=== PATIENT | female | born 1960 | race Caucasian/White ===

== ENCOUNTER 2020-04-09 18:25 | Inpatient (IN) | payer OTHER, MEDICAID, SELFPAY ==
[~2020-04-09] VITALS: Ht 165.1 cm; Wt 116.3 kg
[2020-04-09 18:30] VITALS: BP_SYST 153
[2020-04-09 19:01] LABS: BASOPHILS # (AUTO) 0.1 K/uL (0.0-0.2); BASOPHILS % (AUTO) 0.5 % (0.0-2.0); EOSINOPHILS # (AUTO) 0.1 K/uL (0.0-0.4); EOSINOPHILS % (AUTO) 0.6 % (0.0-4.0); HEMATOCRIT 41.5 % (36-48); HEMOGLOBIN 13.6 g/dL (12.0-16.0); LYMPHOCYTES # (AUTO) 1.6 K/uL (1.0-5.5); LYMPHOCYTES % (AUTO) 14.4 % (20.5-51.5); MEAN CORPUSCULAR HEMOGLOBIN 28 pg (27-31); MEAN CORPUSCULAR HGB CONC 33 % (32-36); MEAN CORPUSCULAR VOLUME 85 fL (79.0-98.0); MONOCYTES # (AUTO) 0.9 K/uL (0.0-1.0); MONOCYTES % (AUTO) 8.5 % (1.7-9.3); NEUTROPHILS # (AUTO) 8.3 K/uL (1.8-7.7); PLATELET COUNT (AUTO) 186 K/uL (130-430); RED BLOOD CELL COUNT(AUTO) 4.86 MIL/uL (4.2-6.2); RED CELL DISTRIBUTION WIDTH 16.6 % (9.0-15.0); WHITE BLOOD COUNT (AUTO) 10.9 K/uL (4.8-10.8)
[2020-04-09 19:09] LABS: ANION GAP 3 (5-15); CALCIUM 9.8 mg/dL (8.4-11.0); CHLORIDE 99 mmol/L (98-107); GLUCOSE 117 mg/dL (70-99); POTASSIUM 4.2 mmol/L (3.5-5.1); SODIUM SERUM 138 mmol/L (136-145); UREA NITROGEN, BLOOD 17 mg/dL (8-21)
[2020-04-09 19:10] LABS: GFR AFRICAN AMERICAN 94 mL/min (>90)
[2020-04-09 19:16] LABS: BILIRUBIN,URINE NEGATIVE (NEGATIVE); BLOOD, URINE NEGATIVE (NEGATIVE); CLARITY/URINE CLEAR (CLEAR); COLOR,URINE YELLOW (YELLOW); GLUCOSE,URINE NEGATIVE (NEGATIVE); KETONES,URINE NEGATIVE (NEGATIVE); LEUKOCYTE ESTERASE ,URINE NEGATIVE (NEGATIVE); NITRITE, URINE NEGATIVE (NEGATIVE); PH,URINE 7.5 (5.0-8.0); PROTEIN URINE NEGATIVE (NEGATIVE); UROBILINOGEN,URINE 0.2 (0.2-1.0)
[2020-04-09] MEDS ORDERED: LORA-259 PO (19:57)
[2020-04-09] MEDS ORDERED: DOCU-144 PO (19:57)
[2020-04-09] MEDS ORDERED: BISA5TAB10 PO (19:57)
[2020-04-09] MEDS ORDERED: MAGN24003 PO (19:57)
[2020-04-09] MEDS ORDERED: PRED10TA PO (19:57)
[2020-04-09] MEDS ORDERED: VALP250S3 PO (19:57)
[2020-04-09] MEDS ORDERED: CHOL500052 PO (19:57)
[2020-04-09] MEDS ORDERED: RISP1TAB27 PO (19:57)
[2020-04-09] MEDS ORDERED: RIVA20TA PO (19:57)
[2020-04-09] MEDS ORDERED: BENZ0.5T43 PO (19:57)
[2020-04-09] MEDS ORDERED: TRAZ-251 PO (19:57)
[2020-04-09] MEDS ORDERED: LEVO88TA5 PO (19:57)
[2020-04-09] MEDS ORDERED: PRO40 PO (19:57)
[2020-04-09] MEDS ORDERED: FURO20TA4 PO (19:57)
[2020-04-09] MEDS ORDERED: DOXE10CA2 PO (19:57)
[2020-04-09] MEDS ORDERED: ASCO500C18 PO (19:57)
[2020-04-09] MEDS ORDERED: ACET325C5 PO ×2 (19:57)
[2020-04-09] MEDS ORDERED: IPRATROPIUM/ALBUTEROL SULFATE 3 ML AMPUL.NEB (DUONEB) INH ONE (20:00)
[2020-04-09] MEDS ORDERED: predniSONE 20 MG TABLET PO ONE (20:15)
[2020-04-09] MEDS ORDERED: ALBUTEROL SULFATE 0.083% 2.5 MG/3 ML VIAL.NEB INH PRN (22:30)
[2020-04-10 00:33] VITALS: BP_SYST 137
[2020-04-10 04:12] VITALS: BP_SYST 137
[2020-04-10] MEDS: LEVOFLOXACIN 500 MG/D5W 100 ML IV SCH (04:20)
[2020-04-10 06:19] LABS: BASOPHILS % (AUTO) 0.3 % (0.0-2.0); EOSINOPHILS % (AUTO) 0.1 % (0.0-4.0); HEMATOCRIT 41.4 % (36-48); HEMOGLOBIN 13.8 g/dL (12.0-16.0); LYMPHOCYTES % (AUTO) 9.2 % (20.5-51.5); MEAN CORPUSCULAR HEMOGLOBIN 30 pg (27-31); MEAN CORPUSCULAR HGB CONC 33 % (32-36); MEAN CORPUSCULAR VOLUME 91 fL (79.0-98.0); MONOCYTES # (AUTO) 0.2 K/uL (0.0-1.0); MONOCYTES % (AUTO) 1.9 % (1.7-9.3); NEUTROPHILS # (AUTO) 9.5 K/uL (1.8-7.7); NEUTROPHILS % (AUTO) 88.5 % (40.0-70.0); PLATELET COUNT (AUTO) 175 K/uL (130-430); RED BLOOD CELL COUNT(AUTO) 4.55 MIL/uL (4.2-6.2); RED CELL DISTRIBUTION WIDTH 16.5 % (9.0-15.0); WHITE BLOOD COUNT (AUTO) 10.7 K/uL (4.8-10.8)
[2020-04-10 06:29] LABS: CALCIUM 9.6 mg/dL (8.4-11.0); CREATININE 0.67 mg/dL (0.55-1.30); POTASSIUM 4.3 mmol/L (3.5-5.1)
[2020-04-10 06:34] LABS: ALBUMIN 2.7 g/dL (3.4-4.8); TOTAL BILIRUBIN 0.1 mg/dL (0.0-1.0)
[2020-04-10] MEDS ORDERED: NON-FORMULARY MEDICATION (Ascorbic Acid (Vitamin C) 1 CAP) PO SCH (07:00)
[2020-04-10] MEDS ORDERED: LORazepam 1 MG TABLET PO PRN (07:00)
[2020-04-10] MEDS ORDERED: FUROSEMIDE 20 MG TABLET PO SCH (07:00)
[2020-04-10] MEDS ORDERED: NON-FORMULARY MEDICATION (Acetaminophen 2 CAP) PO PRN (07:00)
[2020-04-10] MEDS ORDERED: ACETAMINOPHEN 325 MG TABLET PO PRN (07:00)
[2020-04-10] MEDS ORDERED: MILK OF MAGNESIA 30 ML UDC PO PRN (07:00)
[2020-04-10 08:00] VITALS: BP_SYST 145
[2020-04-10] MEDS ORDERED: LORazepam 2 MG/ML VIAL ONE (08:13)
[2020-04-10] MEDS ORDERED: LORazepam 2 MG/ML VIAL IVP PRN (08:15)
[2020-04-10] MEDS ORDERED: HALOPERIDOL LACTATE 5 MG/ML VIAL IVP ONE ×2 (08:15→08:30)
[2020-04-10] MEDS: VALPROIC ACID ORAL SYRUP 250 MG/5 ML UDC PO SCH ×3 (09:00→20:27)
[2020-04-10] MEDS: PANTOPRAZOLE SODIUM 40 MG TAB PO SCH (09:00)
[2020-04-10] MEDS ORDERED: predniSONE 10 MG TABLET PO SCH (09:00)
[2020-04-10] MEDS ORDERED: risperiDONE 1 MG TABLET (RisperDAL) PO SCH (09:00)
[2020-04-10] MEDS: BENZTROPINE MESYLATE 1 MG TABLET PO SCH ×2 (09:44→20:27)
[2020-04-10] MEDS: BISACODYL 5 MG TABLET.DR (DULCOLAX) PO SCH (09:44)
[2020-04-10] MEDS: DOCUSATE SODIUM 100 MG CAPSULE PO SCH (09:44)
[2020-04-10] MEDS: FUROSEMIDE 20 MG TABLET PO SCH (09:45)
[2020-04-10] MEDS: DOXEPIN HCL (SINEquan) 10 MG CAPSULE PO SCH ×2 (09:46→20:27)
[2020-04-10] MEDS: LEVOTHYROXINE SODIUM 0.088 MG TABLET PO SCH (09:46)
[2020-04-10] MEDS: CHOLECALCIFEROL (VITAMIN D3) 2,000 UNIT TABLET PO SCH (09:46)
[2020-04-10] MEDS: ASCORBIC ACID 500 MG TABLET PO SCH (09:46)
[2020-04-10 12:00] VITALS: BP_SYST 141
[2020-04-10] MEDS: HALOPERIDOL LACTATE 5 MG/ML VIAL IVP PRN (15:34)
[2020-04-10 16:00] VITALS: BP_SYST 134
[2020-04-10] MEDS: RIVAROXABAN 10 MG TABLET PO SCH (18:49)
[2020-04-10] MEDS: LORazepam 2 MG/ML VIAL IVP PRN (19:15)
[2020-04-10] MEDS: BUDESONIDE 0.5 MG/2 ML AMPUL.NEB INH SCH (19:36)
[2020-04-10 20:00] VITALS: BP_SYST 148
[2020-04-10] MEDS: risperiDONE 1 MG TABLET (RisperDAL) PO SCH (20:27)
[2020-04-10] MEDS: traZODone HCL 50 MG TABLET (DESYREL) PO SCH (20:27)
[2020-04-10] MEDS ORDERED: methylPREDNISolone SOD SUCC/PF 62.5 MG/ML VIAL IVP SCH (21:15)
[2020-04-10] MEDS ORDERED: LEVOFLOXACIN 500 MG/D5W 100 ML IV ONE (23:17)
[2020-04-11] MEDS: methylPREDNISolone SOD SUCC/PF 62.5 MG/ML VIAL IVP SCH ×3 (00:35→22:10)
[2020-04-11 04:00] VITALS: BP_SYST 111
[2020-04-11] MEDS: LORazepam 2 MG/ML VIAL IVP PRN ×2 (04:30→07:28)
[2020-04-11] MEDS: IPRATROPIUM/ALBUTEROL SULFATE 3 ML AMPUL.NEB (DUONEB) INH SCH ×5 (07:00→23:20)
[2020-04-11] MEDS ORDERED: ALBUTEROL MDI INHALATION 8 GM INH INH SCH (07:00)
[2020-04-11 08:00] VITALS: BP_SYST 120
[2020-04-11] MEDS: BUDESONIDE 0.5 MG/2 ML AMPUL.NEB INH SCH ×2 (09:00→20:46)
[2020-04-11] MEDS: VALPROIC ACID ORAL SYRUP 250 MG/5 ML UDC PO SCH ×3 (10:07→22:10)
[2020-04-11] MEDS: BISACODYL 5 MG TABLET.DR (DULCOLAX) PO SCH (10:07)
[2020-04-11] MEDS: BENZTROPINE MESYLATE 1 MG TABLET PO SCH ×2 (10:07→22:10)
[2020-04-11] MEDS: DOCUSATE SODIUM 100 MG CAPSULE PO SCH (10:07)
[2020-04-11] MEDS: DOXEPIN HCL (SINEquan) 10 MG CAPSULE PO SCH ×2 (10:09→22:10)
[2020-04-11] MEDS: QUEtiapine FUMARATE 25 MG TABLET PO SCH ×2 (10:09→22:10)
[2020-04-11] MEDS: CHOLECALCIFEROL (VITAMIN D3) 2,000 UNIT TABLET PO SCH (10:09)
[2020-04-11] MEDS: risperiDONE 1 MG TABLET (RisperDAL) PO SCH ×2 (10:09→22:10)
[2020-04-11] MEDS: LEVOTHYROXINE SODIUM 0.088 MG TABLET PO SCH (10:09)
[2020-04-11] MEDS: PANTOPRAZOLE SODIUM 40 MG TAB PO SCH (10:09)
[2020-04-11] MEDS: ASCORBIC ACID 500 MG TABLET PO SCH (10:09)
[2020-04-11] MEDS: FUROSEMIDE 20 MG TABLET PO SCH (10:09)
[2020-04-11] MEDS: ALBUTEROL SULFATE 0.083% 2.5 MG/3 ML VIAL.NEB INH SCH ×4 (11:00→23:00)
[2020-04-11 12:00] VITALS: BP_SYST 114
[2020-04-11 16:00] VITALS: BP_SYST 122
[2020-04-11] MEDS: RIVAROXABAN 10 MG TABLET PO SCH (18:41)
[2020-04-11 20:00] VITALS: BP_SYST 123
[2020-04-11] MEDS: MUPIROCIN 2% TOPICAL OINTMENT 22 GM NS SCH (22:10)
[2020-04-11] MEDS: traZODone HCL 50 MG TABLET (DESYREL) PO SCH (22:10)
[2020-04-11] MEDS: LEVOFLOXACIN 500 MG/D5W 100 ML IV SCH (22:11)
[2020-04-11] MEDS ORDERED: methylPREDNISolone SOD SUCC/PF 62.5 MG/ML VIAL IVP SCH (23:30)
[2020-04-12 00:30] VITALS: BP_SYST 118
[2020-04-12] MEDS: ALBUTEROL SULFATE 0.083% 2.5 MG/3 ML VIAL.NEB INH SCH ×3 (03:00→11:00)
[2020-04-12] MEDS: LORazepam 2 MG/ML VIAL IVP PRN ×3 (03:16→15:21)
[2020-04-12] MEDS: IPRATROPIUM/ALBUTEROL SULFATE 3 ML AMPUL.NEB (DUONEB) INH SCH ×6 (03:38→23:28)
[2020-04-12 08:00] VITALS: BP_SYST 132
[2020-04-12] MEDS: BUDESONIDE 0.5 MG/2 ML AMPUL.NEB INH SCH ×2 (08:44→20:06)
[2020-04-12] MEDS: DOCUSATE SODIUM 100 MG CAPSULE PO SCH (09:19)
[2020-04-12] MEDS: BENZTROPINE MESYLATE 1 MG TABLET PO SCH ×2 (09:19→22:01)
[2020-04-12] MEDS: BISACODYL 5 MG TABLET.DR (DULCOLAX) PO SCH (09:19)
[2020-04-12] MEDS: MUPIROCIN 2% TOPICAL OINTMENT 22 GM NS SCH ×2 (09:19→22:01)
[2020-04-12] MEDS: FUROSEMIDE 20 MG TABLET PO SCH (09:19)
[2020-04-12] MEDS: methylPREDNISolone SOD SUCC/PF 62.5 MG/ML VIAL IVP SCH ×2 (09:19→22:02)
[2020-04-12] MEDS: VALPROIC ACID ORAL SYRUP 250 MG/5 ML UDC PO SCH ×3 (09:19→22:01)
[2020-04-12] MEDS: ASCORBIC ACID 500 MG TABLET PO SCH (09:20)
[2020-04-12] MEDS: QUEtiapine FUMARATE 25 MG TABLET PO SCH ×2 (09:20→22:01)
[2020-04-12] MEDS: PANTOPRAZOLE SODIUM 40 MG TAB PO SCH (09:20)
[2020-04-12] MEDS: risperiDONE 1 MG TABLET (RisperDAL) PO SCH ×3 (09:20→22:01)
[2020-04-12] MEDS: DOXEPIN HCL (SINEquan) 10 MG CAPSULE PO SCH ×2 (09:20→22:01)
[2020-04-12] MEDS: LEVOTHYROXINE SODIUM 0.088 MG TABLET PO SCH (09:20)
[2020-04-12] MEDS: CHOLECALCIFEROL (VITAMIN D3) 2,000 UNIT TABLET PO SCH (09:20)
[2020-04-12] MEDS: HALOPERIDOL LACTATE 5 MG/ML VIAL IVP PRN (11:30)
[2020-04-12 12:00] VITALS: BP_SYST 111
[2020-04-12 16:00] VITALS: BP_SYST 113
[2020-04-12] MEDS: RIVAROXABAN 10 MG TABLET PO SCH (17:03)
[2020-04-12 20:00] VITALS: BP_SYST 126
[2020-04-12] MEDS: LEVOFLOXACIN 500 MG/D5W 100 ML IV SCH (22:01)
[2020-04-12] MEDS: traZODone HCL 50 MG TABLET (DESYREL) PO SCH (22:01)
[2020-04-13 00:54] VITALS: BP_SYST 118
[2020-04-13] MEDS: IPRATROPIUM/ALBUTEROL SULFATE 3 ML AMPUL.NEB (DUONEB) INH SCH ×6 (03:48→23:55)
[2020-04-13 07:55] VITALS: BP_SYST 126
[2020-04-13 08:00] VITALS: BP_SYST 126
[2020-04-13] MEDS: BUDESONIDE 0.5 MG/2 ML AMPUL.NEB INH SCH ×2 (09:00→23:54)
[2020-04-13] MEDS: FUROSEMIDE 20 MG TABLET PO SCH (10:07)
[2020-04-13] MEDS: MUPIROCIN 2% TOPICAL OINTMENT 22 GM NS SCH ×2 (10:07→21:25)
[2020-04-13] MEDS: DOCUSATE SODIUM 100 MG CAPSULE PO SCH (10:07)
[2020-04-13] MEDS: BISACODYL 5 MG TABLET.DR (DULCOLAX) PO SCH (10:07)
[2020-04-13] MEDS: BENZTROPINE MESYLATE 1 MG TABLET PO SCH ×2 (10:07→21:24)
[2020-04-13] MEDS: VALPROIC ACID ORAL SYRUP 250 MG/5 ML UDC PO SCH ×3 (10:07→21:23)
[2020-04-13] MEDS: methylPREDNISolone SOD SUCC/PF 62.5 MG/ML VIAL IVP SCH ×2 (10:07→21:26)
[2020-04-13] MEDS: LEVOTHYROXINE SODIUM 0.088 MG TABLET PO SCH (10:08)
[2020-04-13] MEDS: ASCORBIC ACID 500 MG TABLET PO SCH (10:08)
[2020-04-13] MEDS: PANTOPRAZOLE SODIUM 40 MG TAB PO SCH (10:08)
[2020-04-13] MEDS: risperiDONE 1 MG TABLET (RisperDAL) PO SCH ×3 (10:08→21:24)
[2020-04-13] MEDS: QUEtiapine FUMARATE 25 MG TABLET PO SCH ×2 (10:08→21:24)
[2020-04-13] MEDS: DOXEPIN HCL (SINEquan) 10 MG CAPSULE PO SCH ×2 (10:08→21:24)
[2020-04-13] MEDS: CHOLECALCIFEROL (VITAMIN D3) 2,000 UNIT TABLET PO SCH (10:08)
[2020-04-13] MEDS: HALOPERIDOL LACTATE 5 MG/ML VIAL IVP PRN (10:30)
[2020-04-13 11:21] LABS: HEMATOCRIT 42.9 % (36-48); HEMOGLOBIN 14.1 g/dL (12.0-16.0); MEAN CORPUSCULAR HEMOGLOBIN 29 pg (27-31); MEAN CORPUSCULAR HGB CONC 33 % (32-36); MEAN CORPUSCULAR VOLUME 88 fL (79.0-98.0); RED BLOOD CELL COUNT(AUTO) 4.88 MIL/uL (4.2-6.2); RED CELL DISTRIBUTION WIDTH 16.8 % (9.0-15.0); WHITE BLOOD COUNT (AUTO) 15.5 K/uL (4.8-10.8)
[2020-04-13 11:43] LABS: PLATELET COUNT (AUTO) 141 K/uL (130-430)
[2020-04-13 11:59] LABS: BAND % (MANUAL) 3 % (0-6); BASOPHILS % (MANUAL) 0 % (0-2); EOSINOPHILS % (MANUAL) 0 % (0-7); LYMPHOCYTES % (MANUAL) 14 % (20-46); MONOCYTES % (MANUAL) 6 % (0-11)
[2020-04-13 12:00] VITALS: BP_SYST 126
[2020-04-13] MEDS: LORazepam 2 MG/ML VIAL IVP PRN (15:06)
[2020-04-13 17:02] VITALS: BP_SYST 125
[2020-04-13] MEDS: RIVAROXABAN 10 MG TABLET PO SCH (17:15)
[2020-04-13 20:00] VITALS: BP_SYST 138
[2020-04-13] MEDS: traZODone HCL 50 MG TABLET (DESYREL) PO SCH (21:24)
[2020-04-13] MEDS: LEVOFLOXACIN 500 MG/D5W 100 ML IV SCH (21:25)
[2020-04-14] VITALS: BP_SYST 121
[2020-04-14] MEDS: LORazepam 2 MG/ML VIAL IVP PRN ×2 (00:54→17:56)
[2020-04-14] MEDS: IPRATROPIUM/ALBUTEROL SULFATE 3 ML AMPUL.NEB (DUONEB) INH SCH ×6 (03:00→23:20)
[2020-04-14] MEDS: HALOPERIDOL LACTATE 5 MG/ML VIAL IVP PRN (05:09)
[2020-04-14 05:59] LABS: EOSINOPHILS # (AUTO) 0.2 K/uL (0.0-0.4); LYMPHOCYTES % (AUTO) 9.1 % (20.5-51.5); RED BLOOD CELL COUNT(AUTO) 4.45 MIL/uL (4.2-6.2)
[2020-04-14 06:17] LABS: ALBUMIN 2.4 g/dL (3.4-4.8); CALCIUM 9.4 mg/dL (8.4-11.0); CREATININE 0.84 mg/dL (0.55-1.30); POTASSIUM 4.2 mmol/L (3.5-5.1); TOTAL BILIRUBIN 0.2 mg/dL (0.0-1.0)
[2020-04-14 07:15] LABS: BASOPHILS # (AUTO) 0.1 K/uL (0.0-0.2); BASOPHILS % (AUTO) 0.5 % (0.0-2.0); EOSINOPHILS % (AUTO) 1.2 % (0.0-4.0); HEMATOCRIT 39.2 % (36-48); HEMOGLOBIN 12.9 g/dL (12.0-16.0); LYMPHOCYTES # (AUTO) 1.7 K/uL (1.0-5.5); MEAN CORPUSCULAR HEMOGLOBIN 29 pg (27-31); MEAN CORPUSCULAR HGB CONC 33 % (32-36); MEAN CORPUSCULAR VOLUME 88 fL (79.0-98.0); MONOCYTES # (AUTO) 0.9 K/uL (0.0-1.0); MONOCYTES % (AUTO) 4.8 % (1.7-9.3); NEUTROPHILS # (AUTO) 15.9 K/uL (1.8-7.7); NEUTROPHILS % (AUTO) 84.4 % (40.0-70.0); PLATELET COUNT (AUTO) 239 K/uL (130-430); RED CELL DISTRIBUTION WIDTH 16.6 % (9.0-15.0); WHITE BLOOD COUNT (AUTO) 18.9 K/uL (4.8-10.8)
[2020-04-14 07:45] VITALS: BP_SYST 129
[2020-04-14] MEDS ORDERED: DIPHENHYDRAMINE HCL 50 MG CAPSULE PO ONE (09:00)
[2020-04-14] MEDS: BUDESONIDE 0.5 MG/2 ML AMPUL.NEB INH SCH ×2 (09:46→20:20)
[2020-04-14] MEDS: DOCUSATE SODIUM 100 MG CAPSULE PO SCH (10:00)
[2020-04-14] MEDS: ASCORBIC ACID 500 MG TABLET PO SCH (10:00)
[2020-04-14] MEDS: risperiDONE 1 MG TABLET (RisperDAL) PO SCH ×4 (10:00→21:19)
[2020-04-14] MEDS: FUROSEMIDE 20 MG TABLET PO SCH (10:01)
[2020-04-14] MEDS: PANTOPRAZOLE SODIUM 40 MG TAB PO SCH (10:01)
[2020-04-14] MEDS: BISACODYL 5 MG TABLET.DR (DULCOLAX) PO SCH (10:01)
[2020-04-14] MEDS: VALPROIC ACID ORAL SYRUP 250 MG/5 ML UDC PO SCH ×4 (10:02→21:17)
[2020-04-14] MEDS: methylPREDNISolone SOD SUCC/PF 62.5 MG/ML VIAL IVP SCH (10:02)
[2020-04-14] MEDS: CHOLECALCIFEROL (VITAMIN D3) 2,000 UNIT TABLET PO SCH (10:03)
[2020-04-14] MEDS: THORAZINE (chlorproMAZINE) 25 MG TAB PO SCH ×3 (10:05→21:19)
[2020-04-14] MEDS: LEVOTHYROXINE SODIUM 0.088 MG TABLET PO SCH (10:08)
[2020-04-14] MEDS: MUPIROCIN 2% TOPICAL OINTMENT 22 GM NS SCH ×2 (10:23→22:36)
[2020-04-14 12:00] VITALS: BP_SYST 167
[2020-04-14] MEDS ORDERED: FLUCONAZOLE 100 mg/ NS 50 ML IV SCH (12:00)
[2020-04-14] MEDS: ALBUTEROL SULFATE 0.083% 2.5 MG/3 ML VIAL.NEB INH SCH ×3 (15:00→23:00)
[2020-04-14] MEDS: DIPHENHYDRAMINE HCL 50 MG CAPSULE PO SCH ×3 (15:00→21:19)
[2020-04-14 16:10] VITALS: BP_SYST 142
[2020-04-14] MEDS: RIVAROXABAN 10 MG TABLET PO SCH (18:26)
[2020-04-14] MEDS: chlorproMAZINE HCL 50 MG/ 2 ML AMP IM PRN (18:38)
[2020-04-14] MEDS: methylPREDNISolone SOD SUCC 40 MG/ML VIAL IVP SCH (21:17)
[2020-04-14] MEDS: metroNIDAZOLE 500 mg/NS 100 ML IV SCH (21:18)
[2020-04-14] MEDS: LEVOFLOXACIN 500 MG/D5W 100 ML IV SCH (22:35)
[2020-04-15 00:31] VITALS: BP_SYST 117
[2020-04-15] MEDS: IPRATROPIUM/ALBUTEROL SULFATE 3 ML AMPUL.NEB (DUONEB) INH SCH ×6 (03:00→23:35)
[2020-04-15] MEDS: ALBUTEROL SULFATE 0.083% 2.5 MG/3 ML VIAL.NEB INH SCH ×3 (03:00→23:00)
[2020-04-15 08:30] VITALS: BP_SYST 135
[2020-04-15 08:31] LABS: CALCIUM 8.8 mg/dL (8.4-11.0); CREATININE 0.76 mg/dL (0.55-1.30); POTASSIUM 4.4 mmol/L (3.5-5.1)
[2020-04-15] MEDS: BUDESONIDE 0.5 MG/2 ML AMPUL.NEB INH SCH ×2 (08:45→20:12)
[2020-04-15] MEDS: metroNIDAZOLE 500 mg/NS 100 ML IV SCH ×2 (09:15→20:35)
[2020-04-15] MEDS: MUPIROCIN 2% TOPICAL OINTMENT 22 GM NS SCH ×2 (09:15→20:36)
[2020-04-15] MEDS: VALPROIC ACID ORAL SYRUP 250 MG/5 ML UDC PO SCH ×3 (09:16→20:45)
[2020-04-15] MEDS: DOCUSATE SODIUM 100 MG CAPSULE PO SCH (09:17)
[2020-04-15] MEDS: PANTOPRAZOLE SODIUM 40 MG TAB PO SCH (09:17)
[2020-04-15] MEDS: methylPREDNISolone SOD SUCC 40 MG/ML VIAL IVP SCH ×2 (09:17→20:35)
[2020-04-15] MEDS: THORAZINE (chlorproMAZINE) 25 MG TAB PO SCH ×3 (09:17→20:36)
[2020-04-15] MEDS: ASCORBIC ACID 500 MG TABLET PO SCH (09:17)
[2020-04-15] MEDS: risperiDONE 1 MG TABLET (RisperDAL) PO SCH ×3 (09:17→20:36)
[2020-04-15] MEDS: DIPHENHYDRAMINE HCL 50 MG CAPSULE PO SCH ×3 (09:18→20:35)
[2020-04-15] MEDS: FUROSEMIDE 20 MG TABLET PO SCH (09:18)
[2020-04-15] MEDS: CHOLECALCIFEROL (VITAMIN D3) 2,000 UNIT TABLET PO SCH (09:18)
[2020-04-15] MEDS: LEVOTHYROXINE SODIUM 0.088 MG TABLET PO SCH (09:18)
[2020-04-15] MEDS: BISACODYL 5 MG TABLET.DR (DULCOLAX) PO SCH (09:18)
[2020-04-15 11:14] LABS: BASOPHILS % (AUTO) 0.3 % (0.0-2.0); HEMATOCRIT 40.9 % (36-48); HEMOGLOBIN 13.6 g/dL (12.0-16.0); LYMPHOCYTES # (AUTO) 1.6 K/uL (1.0-5.5); LYMPHOCYTES % (AUTO) 11.7 % (20.5-51.5); MEAN CORPUSCULAR HEMOGLOBIN 30 pg (27-31); MEAN CORPUSCULAR HGB CONC 33 % (32-36); MEAN CORPUSCULAR VOLUME 89 fL (79.0-98.0); MONOCYTES # (AUTO) 0.7 K/uL (0.0-1.0); MONOCYTES % (AUTO) 4.9 % (1.7-9.3); NEUTROPHILS # (AUTO) 11.3 K/uL (1.8-7.7); NEUTROPHILS % (AUTO) 83.1 % (40.0-70.0); PLATELET COUNT (AUTO) 180 K/uL (130-430); RED BLOOD CELL COUNT(AUTO) 4.58 MIL/uL (4.2-6.2); RED CELL DISTRIBUTION WIDTH 16.5 % (9.0-15.0); WHITE BLOOD COUNT (AUTO) 13.6 K/uL (4.8-10.8)
[2020-04-15 12:00] VITALS: BP_SYST 132
[2020-04-15 16:00] VITALS: BP_SYST 128
[2020-04-15] MEDS: RIVAROXABAN 10 MG TABLET PO SCH (17:19)
[2020-04-15 20:00] VITALS: BP_SYST 128
[2020-04-15] MEDS: LEVOFLOXACIN 500 MG/D5W 100 ML IV SCH (21:42)
[2020-04-16 00:26] VITALS: BP_SYST 123
[2020-04-16] MEDS: IPRATROPIUM/ALBUTEROL SULFATE 3 ML AMPUL.NEB (DUONEB) INH SCH ×6 (03:00→23:00)
[2020-04-16] MEDS: ALBUTEROL SULFATE 0.083% 2.5 MG/3 ML VIAL.NEB INH SCH ×6 (03:00→23:00)
[2020-04-16 08:00] VITALS: BP_SYST 133
[2020-04-16] MEDS: metroNIDAZOLE 500 mg/NS 100 ML IV SCH ×2 (08:52→20:29)
[2020-04-16] MEDS: THORAZINE (chlorproMAZINE) 25 MG TAB PO SCH ×3 (08:52→20:27)
[2020-04-16] MEDS: FUROSEMIDE 20 MG TABLET PO SCH (08:53)
[2020-04-16] MEDS: ASCORBIC ACID 500 MG TABLET PO SCH (08:53)
[2020-04-16] MEDS: methylPREDNISolone SOD SUCC 40 MG/ML VIAL IVP SCH ×2 (08:53→20:26)
[2020-04-16] MEDS: PANTOPRAZOLE SODIUM 40 MG TAB PO SCH (08:53)
[2020-04-16] MEDS: risperiDONE 1 MG TABLET (RisperDAL) PO SCH ×3 (08:53→20:26)
[2020-04-16] MEDS: VALPROIC ACID ORAL SYRUP 250 MG/5 ML UDC PO SCH ×3 (08:53→20:27)
[2020-04-16] MEDS: DOCUSATE SODIUM 100 MG CAPSULE PO SCH (08:54)
[2020-04-16] MEDS: BISACODYL 5 MG TABLET.DR (DULCOLAX) PO SCH (08:54)
[2020-04-16] MEDS: LEVOTHYROXINE SODIUM 0.088 MG TABLET PO SCH (08:54)
[2020-04-16] MEDS: DIPHENHYDRAMINE HCL 50 MG CAPSULE PO SCH ×3 (08:54→20:26)
[2020-04-16] MEDS: MUPIROCIN 2% TOPICAL OINTMENT 22 GM NS SCH (08:54)
[2020-04-16] MEDS: CHOLECALCIFEROL (VITAMIN D3) 2,000 UNIT TABLET PO SCH (08:54)
[2020-04-16] MEDS: BUDESONIDE 0.5 MG/2 ML AMPUL.NEB INH SCH ×2 (09:00→21:00)
[2020-04-16 12:00] VITALS: BP_SYST 125
[2020-04-16 16:58] VITALS: BP_SYST 128
[2020-04-16] MEDS: RIVAROXABAN 10 MG TABLET PO SCH (17:07)
[2020-04-16 20:00] VITALS: BP_SYST 143
[2020-04-16] MEDS: LEVOFLOXACIN 500 MG/D5W 100 ML IV SCH (21:47)
[2020-04-17 00:30] VITALS: BP_SYST 142
[2020-04-17] MEDS: IPRATROPIUM/ALBUTEROL SULFATE 3 ML AMPUL.NEB (DUONEB) INH SCH ×6 (03:31→23:13)
[2020-04-17 06:40] LABS: HEMATOCRIT 40.1 % (36-48); HEMOGLOBIN 13.3 g/dL (12.0-16.0); LYMPHOCYTES # (AUTO) 1.8 K/uL (1.0-5.5); LYMPHOCYTES % (AUTO) 13.6 % (20.5-51.5); MEAN CORPUSCULAR HEMOGLOBIN 29 pg (27-31); MEAN CORPUSCULAR HGB CONC 33 % (32-36); MEAN CORPUSCULAR VOLUME 88 fL (79.0-98.0); MONOCYTES # (AUTO) 1.1 K/uL (0.0-1.0); MONOCYTES % (AUTO) 8.7 % (1.7-9.3); NEUTROPHILS # (AUTO) 10.1 K/uL (1.8-7.7); NEUTROPHILS % (AUTO) 77.7 % (40.0-70.0); PLATELET COUNT (AUTO) 178 K/uL (130-430); RED BLOOD CELL COUNT(AUTO) 4.55 MIL/uL (4.2-6.2); RED CELL DISTRIBUTION WIDTH 16.5 % (9.0-15.0)
[2020-04-17 06:42] LABS: CALCIUM 9.1 mg/dL (8.4-11.0); CHLORIDE 96 mmol/L (98-107); GLUCOSE 123 mg/dL (70-99); POTASSIUM 4.3 mmol/L (3.5-5.1); SODIUM SERUM 135 mmol/L (136-145); UREA NITROGEN, BLOOD 17 mg/dL (8-21)
[2020-04-17] MEDS: ALBUTEROL SULFATE 0.083% 2.5 MG/3 ML VIAL.NEB INH SCH ×5 (07:00→23:00)
[2020-04-17 07:13] LABS: ANION GAP < 3 (5-15); GFR AFRICAN AMERICAN 109 mL/min (>90)
[2020-04-17 08:00] VITALS: BP_SYST 118
[2020-04-17] MEDS: metroNIDAZOLE 500 mg/NS 100 ML IV SCH ×2 (08:19→21:41)
[2020-04-17] MEDS: ASCORBIC ACID 500 MG TABLET PO SCH (08:20)
[2020-04-17] MEDS: VALPROIC ACID ORAL SYRUP 250 MG/5 ML UDC PO SCH ×3 (08:20→21:26)
[2020-04-17] MEDS: risperiDONE 1 MG TABLET (RisperDAL) PO SCH ×3 (08:20→21:24)
[2020-04-17] MEDS: methylPREDNISolone SOD SUCC 40 MG/ML VIAL IVP SCH ×2 (08:20→21:26)
[2020-04-17] MEDS: LEVOTHYROXINE SODIUM 0.088 MG TABLET PO SCH (08:20)
[2020-04-17] MEDS: PANTOPRAZOLE SODIUM 40 MG TAB PO SCH (08:20)
[2020-04-17] MEDS: DIPHENHYDRAMINE HCL 50 MG CAPSULE PO SCH ×3 (08:21→21:25)
[2020-04-17] MEDS: FUROSEMIDE 20 MG TABLET PO SCH (08:21)
[2020-04-17] MEDS: CHOLECALCIFEROL (VITAMIN D3) 2,000 UNIT TABLET PO SCH (08:21)
[2020-04-17] MEDS: BISACODYL 5 MG TABLET.DR (DULCOLAX) PO SCH (08:21)
[2020-04-17] MEDS: DOCUSATE SODIUM 100 MG CAPSULE PO SCH (08:21)
[2020-04-17] MEDS: chlorproMAZINE HCL 50 MG/ 2 ML AMP IM PRN ×2 (08:35→15:04)
[2020-04-17] MEDS: THORAZINE (chlorproMAZINE) 25 MG TAB PO SCH ×3 (09:00→21:25)
[2020-04-17 09:24] VITALS: BP_SYST 118
[2020-04-17] MEDS: BUDESONIDE 0.5 MG/2 ML AMPUL.NEB INH SCH ×2 (09:48→19:36)
[2020-04-17 12:20] VITALS: BP_SYST 133
[2020-04-17 15:41] VITALS: BP_SYST 120
[2020-04-17] MEDS: RIVAROXABAN 10 MG TABLET PO SCH (17:55)
[2020-04-17 21:00] VITALS: BP_SYST 128
[2020-04-18 01:37] VITALS: BP_SYST 116
[2020-04-18] MEDS: IPRATROPIUM/ALBUTEROL SULFATE 3 ML AMPUL.NEB (DUONEB) INH SCH ×6 (03:47→23:09)
[2020-04-18] MEDS: LORazepam 2 MG/ML VIAL IVP PRN ×2 (07:37→20:50)
[2020-04-18 08:00] VITALS: BP_SYST 143
[2020-04-18 08:21] LABS: BASOPHILS # (AUTO) 0.1 K/uL (0.0-0.2); BASOPHILS % (AUTO) 0.6 % (0.0-2.0); EOSINOPHILS % (AUTO) 0.2 % (0.0-4.0); HEMATOCRIT 41.6 % (36-48); HEMOGLOBIN 13.5 g/dL (12.0-16.0); LYMPHOCYTES # (AUTO) 1.9 K/uL (1.0-5.5); LYMPHOCYTES % (AUTO) 14.6 % (20.5-51.5); MEAN CORPUSCULAR HEMOGLOBIN 29 pg (27-31); MEAN CORPUSCULAR HGB CONC 33 % (32-36); MEAN CORPUSCULAR VOLUME 88 fL (79.0-98.0); MONOCYTES # (AUTO) 0.9 K/uL (0.0-1.0); NEUTROPHILS # (AUTO) 10.2 K/uL (1.8-7.7); NEUTROPHILS % (AUTO) 77.6 % (40.0-70.0); PLATELET COUNT (AUTO) 156 K/uL (130-430); RED BLOOD CELL COUNT(AUTO) 4.73 MIL/uL (4.2-6.2); RED CELL DISTRIBUTION WIDTH 16.8 % (9.0-15.0); WHITE BLOOD COUNT (AUTO) 13.1 K/uL (4.8-10.8)
[2020-04-18] MEDS: risperiDONE 1 MG TABLET (RisperDAL) PO SCH ×3 (08:45→21:55)
[2020-04-18] MEDS: CHOLECALCIFEROL (VITAMIN D3) 2,000 UNIT TABLET PO SCH (08:45)
[2020-04-18] MEDS: VALPROIC ACID ORAL SYRUP 250 MG/5 ML UDC PO SCH ×3 (08:45→21:52)
[2020-04-18] MEDS: THORAZINE (chlorproMAZINE) 25 MG TAB PO SCH ×3 (08:45→21:55)
[2020-04-18] MEDS: BISACODYL 5 MG TABLET.DR (DULCOLAX) PO SCH (08:46)
[2020-04-18] MEDS: PANTOPRAZOLE SODIUM 40 MG TAB PO SCH (08:46)
[2020-04-18] MEDS: FUROSEMIDE 20 MG TABLET PO SCH (08:46)
[2020-04-18] MEDS: DIPHENHYDRAMINE HCL 50 MG CAPSULE PO SCH ×3 (08:46→21:55)
[2020-04-18] MEDS: methylPREDNISolone SOD SUCC 40 MG/ML VIAL IVP SCH ×2 (08:46→21:53)
[2020-04-18] MEDS: DOCUSATE SODIUM 100 MG CAPSULE PO SCH (08:46)
[2020-04-18] MEDS: LEVOTHYROXINE SODIUM 0.088 MG TABLET PO SCH (08:46)
[2020-04-18] MEDS: ASCORBIC ACID 500 MG TABLET PO SCH (08:47)
[2020-04-18] MEDS: metroNIDAZOLE 500 mg/NS 100 ML IV SCH ×2 (08:47→21:55)
[2020-04-18] MEDS: MUPIROCIN 2% TOPICAL OINTMENT 22 GM TP SCH ×2 (08:47→21:54)
[2020-04-18] MEDS: BUDESONIDE 0.5 MG/2 ML AMPUL.NEB INH SCH ×2 (09:00→20:05)
[2020-04-18 11:34] VITALS: BP_SYST 133
[2020-04-18 15:21] VITALS: BP_SYST 140
[2020-04-18] MEDS: RIVAROXABAN 10 MG TABLET PO SCH (17:54)
[2020-04-18] MEDS: ALBUTEROL SULFATE 0.083% 2.5 MG/3 ML VIAL.NEB INH SCH ×2 (19:00→23:00)
[2020-04-18 20:00] VITALS: BP_SYST 136
[2020-04-19] MEDS: LORazepam 2 MG/ML VIAL IVP PRN ×2 (02:10→11:25)
[2020-04-19 02:34] VITALS: BP_SYST 124
[2020-04-19] MEDS: IPRATROPIUM/ALBUTEROL SULFATE 3 ML AMPUL.NEB (DUONEB) INH SCH ×5 (03:00→20:01)
[2020-04-19] MEDS: ALBUTEROL SULFATE 0.083% 2.5 MG/3 ML VIAL.NEB INH SCH ×5 (03:00→19:00)
[2020-04-19 07:46] VITALS: BP_SYST 150
[2020-04-19] MEDS: LEVOTHYROXINE SODIUM 0.088 MG TABLET PO SCH (08:30)
[2020-04-19] MEDS: risperiDONE 1 MG TABLET (RisperDAL) PO SCH ×3 (08:31→21:00)
[2020-04-19] MEDS: CHOLECALCIFEROL (VITAMIN D3) 2,000 UNIT TABLET PO SCH (08:31)
[2020-04-19] MEDS: VALPROIC ACID ORAL SYRUP 250 MG/5 ML UDC PO SCH ×3 (08:31→21:00)
[2020-04-19] MEDS: BISACODYL 5 MG TABLET.DR (DULCOLAX) PO SCH (08:31)
[2020-04-19] MEDS: DIPHENHYDRAMINE HCL 50 MG CAPSULE PO SCH ×3 (08:32→21:00)
[2020-04-19] MEDS: DOCUSATE SODIUM 100 MG CAPSULE PO SCH (08:32)
[2020-04-19] MEDS: PANTOPRAZOLE SODIUM 40 MG TAB PO SCH (08:32)
[2020-04-19] MEDS: ASCORBIC ACID 500 MG TABLET PO SCH (08:32)
[2020-04-19] MEDS: FUROSEMIDE 20 MG TABLET PO SCH (08:33)
[2020-04-19] MEDS: methylPREDNISolone SOD SUCC 40 MG/ML VIAL IVP SCH (08:33)
[2020-04-19] MEDS: THORAZINE (chlorproMAZINE) 25 MG TAB PO SCH ×3 (08:33→21:00)
[2020-04-19] MEDS: metroNIDAZOLE 500 MG TABLET PO SCH ×2 (08:46→21:00)
[2020-04-19] MEDS: MUPIROCIN 2% TOPICAL OINTMENT 22 GM TP SCH ×2 (09:00→21:00)
[2020-04-19] MEDS: BUDESONIDE 0.5 MG/2 ML AMPUL.NEB INH SCH ×2 (10:10→20:01)
[2020-04-19 13:48] VITALS: BP_SYST 132
[2020-04-19] MEDS: chlorproMAZINE HCL 50 MG/ 2 ML AMP IM PRN ×2 (15:45→17:51)
[2020-04-19 16:00] VITALS: BP_SYST 126
[2020-04-19] MEDS: RIVAROXABAN 10 MG TABLET PO SCH (17:49)
[2020-04-20] MEDS: ALBUTEROL SULFATE 0.083% 2.5 MG/3 ML VIAL.NEB INH SCH ×5 (07:00→15:00)
[2020-04-20] MEDS: IPRATROPIUM/ALBUTEROL SULFATE 3 ML AMPUL.NEB (DUONEB) INH SCH ×5 (07:00→23:00)
[2020-04-20] MEDS: DOCUSATE SODIUM 100 MG CAPSULE PO SCH (09:00)
[2020-04-20] MEDS: BUDESONIDE 0.5 MG/2 ML AMPUL.NEB INH SCH ×2 (09:00→21:00)
[2020-04-20] MEDS: DIPHENHYDRAMINE HCL 50 MG CAPSULE PO SCH ×3 (09:13→22:19)
[2020-04-20] MEDS: THORAZINE (chlorproMAZINE) 25 MG TAB PO SCH ×3 (09:14→22:19)
[2020-04-20] MEDS: PANTOPRAZOLE SODIUM 40 MG TAB PO SCH (09:14)
[2020-04-20] MEDS: BISACODYL 5 MG TABLET.DR (DULCOLAX) PO SCH (09:14)
[2020-04-20] MEDS: LEVOTHYROXINE SODIUM 0.088 MG TABLET PO SCH (09:14)
[2020-04-20] MEDS: ASCORBIC ACID 500 MG TABLET PO SCH (09:14)
[2020-04-20] MEDS: CHOLECALCIFEROL (VITAMIN D3) 2,000 UNIT TABLET PO SCH (09:14)
[2020-04-20] MEDS: metroNIDAZOLE 500 MG TABLET PO SCH ×2 (09:14→22:19)
[2020-04-20] MEDS: predniSONE 20 MG TABLET PO SCH (09:14)
[2020-04-20] MEDS: FUROSEMIDE 20 MG TABLET PO SCH (09:15)
[2020-04-20] MEDS: VALPROIC ACID ORAL SYRUP 250 MG/5 ML UDC PO SCH ×3 (09:15→22:27)
[2020-04-20] MEDS: risperiDONE 1 MG TABLET (RisperDAL) PO SCH ×3 (09:15→22:19)
[2020-04-20] MEDS: MUPIROCIN 2% TOPICAL OINTMENT 22 GM TP SCH ×2 (09:16→22:21)
[2020-04-20 12:43] VITALS: BP_SYST 123
[2020-04-20 17:15] VITALS: BP_SYST 128
[2020-04-20] MEDS: RIVAROXABAN 10 MG TABLET PO SCH (17:31)
[2020-04-20 20:00] VITALS: BP_SYST 131
[2020-04-21] VITALS: BP_SYST 147
[2020-04-21] MEDS: ALBUTEROL SULFATE 0.083% 2.5 MG/3 ML VIAL.NEB INH SCH ×6 (03:00→23:00)
[2020-04-21] MEDS: IPRATROPIUM/ALBUTEROL SULFATE 3 ML AMPUL.NEB (DUONEB) INH SCH ×6 (03:00→23:00)
[2020-04-21] MEDS: BUDESONIDE 0.5 MG/2 ML AMPUL.NEB INH SCH ×2 (09:00→21:00)
[2020-04-21] MEDS: BISACODYL 5 MG TABLET.DR (DULCOLAX) PO SCH (09:42)
[2020-04-21] MEDS: metroNIDAZOLE 500 MG TABLET PO SCH ×2 (09:42→23:47)
[2020-04-21] MEDS: DOCUSATE SODIUM 100 MG CAPSULE PO SCH (09:42)
[2020-04-21] MEDS: FUROSEMIDE 20 MG TABLET PO SCH (09:44)
[2020-04-21] MEDS: ASCORBIC ACID 500 MG TABLET PO SCH (09:45)
[2020-04-21] MEDS: CHOLECALCIFEROL (VITAMIN D3) 2,000 UNIT TABLET PO SCH (09:45)
[2020-04-21] MEDS: risperiDONE 1 MG TABLET (RisperDAL) PO SCH ×3 (09:46→23:48)
[2020-04-21] MEDS: predniSONE 20 MG TABLET PO SCH (09:46)
[2020-04-21] MEDS: PANTOPRAZOLE SODIUM 40 MG TAB PO SCH (09:47)
[2020-04-21] MEDS: DIPHENHYDRAMINE HCL 50 MG CAPSULE PO SCH ×3 (09:47→23:47)
[2020-04-21] MEDS: THORAZINE (chlorproMAZINE) 25 MG TAB PO SCH ×3 (09:47→23:47)
[2020-04-21] MEDS: LEVOTHYROXINE SODIUM 0.088 MG TABLET PO SCH (10:28)
[2020-04-21] MEDS: VALPROIC ACID ORAL SYRUP 250 MG/5 ML UDC PO SCH ×3 (10:28→23:53)
[2020-04-21 12:00] VITALS: BP_SYST 129
[2020-04-21 16:00] VITALS: BP_SYST 144
[2020-04-21] MEDS: RIVAROXABAN 10 MG TABLET PO SCH (19:15)
[2020-04-21 20:15] VITALS: BP_SYST 127
[2020-04-22] MEDS: IPRATROPIUM/ALBUTEROL SULFATE 3 ML AMPUL.NEB (DUONEB) INH SCH ×6 (03:00→23:00)
[2020-04-22] MEDS: ALBUTEROL SULFATE 0.083% 2.5 MG/3 ML VIAL.NEB INH SCH ×3 (03:00→23:00)
[2020-04-22] MEDS ORDERED: predniSONE 20 MG TABLET PO SCH (08:00)
[2020-04-22] MEDS: BUDESONIDE 0.5 MG/2 ML AMPUL.NEB INH SCH ×2 (09:07→20:32)
[2020-04-22] MEDS: risperiDONE 1 MG TABLET (RisperDAL) PO SCH ×3 (09:16→22:17)
[2020-04-22] MEDS: MUPIROCIN 2% TOPICAL OINTMENT 22 GM TP SCH ×2 (09:16→22:19)
[2020-04-22] MEDS: CHOLECALCIFEROL (VITAMIN D3) 2,000 UNIT TABLET PO SCH (09:16)
[2020-04-22] MEDS: FUROSEMIDE 20 MG TABLET PO SCH (09:18)
[2020-04-22] MEDS: LEVOTHYROXINE SODIUM 0.088 MG TABLET PO SCH (09:19)
[2020-04-22] MEDS: metroNIDAZOLE 500 MG TABLET PO SCH ×2 (09:19→22:17)
[2020-04-22] MEDS: ASCORBIC ACID 500 MG TABLET PO SCH (09:19)
[2020-04-22] MEDS: THORAZINE (chlorproMAZINE) 25 MG TAB PO SCH ×3 (09:19→22:17)
[2020-04-22] MEDS: PANTOPRAZOLE SODIUM 40 MG TAB PO SCH (09:19)
[2020-04-22] MEDS: BISACODYL 5 MG TABLET.DR (DULCOLAX) PO SCH (09:19)
[2020-04-22] MEDS: DOCUSATE SODIUM 100 MG CAPSULE PO SCH (09:19)
[2020-04-22] MEDS: DIPHENHYDRAMINE HCL 50 MG CAPSULE PO SCH ×3 (09:19→22:17)
[2020-04-22] MEDS: VALPROIC ACID ORAL SYRUP 250 MG/5 ML UDC PO SCH ×3 (09:20→22:18)
[2020-04-22 11:31] VITALS: BP_SYST 91
[2020-04-22] MEDS ORDERED: ALBUTEROL SULFATE 0.083% 2.5 MG/3 ML VIAL.NEB INH ONE (14:37)
[2020-04-22 15:43] VITALS: BP_SYST 110
[2020-04-22] MEDS: RIVAROXABAN 10 MG TABLET PO SCH (18:13)
[2020-04-22 20:00] VITALS: BP_SYST 99
[2020-04-23 00:37] VITALS: BP_SYST 142
[2020-04-23] MEDS: ALBUTEROL SULFATE 0.083% 2.5 MG/3 ML VIAL.NEB INH SCH ×3 (03:00→23:00)
[2020-04-23] MEDS: IPRATROPIUM/ALBUTEROL SULFATE 3 ML AMPUL.NEB (DUONEB) INH SCH ×6 (03:00→23:00)
[2020-04-23 08:00] VITALS: BP_SYST 117
[2020-04-23] MEDS: BUDESONIDE 0.5 MG/2 ML AMPUL.NEB INH SCH ×2 (08:23→20:35)
[2020-04-23] MEDS: PANTOPRAZOLE SODIUM 40 MG TAB PO SCH (11:25)
[2020-04-23] MEDS: CHOLECALCIFEROL (VITAMIN D3) 2,000 UNIT TABLET PO SCH (11:26)
[2020-04-23] MEDS: metroNIDAZOLE 500 MG TABLET PO SCH ×2 (11:26→21:34)
[2020-04-23] MEDS: ASCORBIC ACID 500 MG TABLET PO SCH (11:27)
[2020-04-23] MEDS: THORAZINE (chlorproMAZINE) 25 MG TAB PO SCH ×3 (11:27→21:36)
[2020-04-23] MEDS: risperiDONE 1 MG TABLET (RisperDAL) PO SCH ×3 (11:27→21:34)
[2020-04-23] MEDS: DIPHENHYDRAMINE HCL 50 MG CAPSULE PO SCH ×3 (11:27→21:35)
[2020-04-23] MEDS: BISACODYL 5 MG TABLET.DR (DULCOLAX) PO SCH (11:28)
[2020-04-23] MEDS: VALPROIC ACID ORAL SYRUP 250 MG/5 ML UDC PO SCH ×3 (11:28→21:34)
[2020-04-23] MEDS: DOCUSATE SODIUM 100 MG CAPSULE PO SCH (11:28)
[2020-04-23] MEDS: LEVOTHYROXINE SODIUM 0.088 MG TABLET PO SCH (11:29)
[2020-04-23 12:00] VITALS: BP_SYST 130
[2020-04-23] MEDS: FUROSEMIDE 20 MG TABLET PO SCH (16:50)
[2020-04-23 17:40] VITALS: BP_SYST 127
[2020-04-23] MEDS: chlorproMAZINE HCL 50 MG/ 2 ML AMP IM PRN (18:36)
[2020-04-23 20:00] VITALS: BP_SYST 108
[2020-04-23] MEDS: RIVAROXABAN 10 MG TABLET PO SCH (21:37)
[2020-04-24] MEDS: ALBUTEROL SULFATE 0.083% 2.5 MG/3 ML VIAL.NEB INH SCH ×6 (03:00→23:00)
[2020-04-24] MEDS: IPRATROPIUM/ALBUTEROL SULFATE 3 ML AMPUL.NEB (DUONEB) INH SCH ×6 (03:46→23:00)
[2020-04-24] MEDS: chlorproMAZINE HCL 50 MG/ 2 ML AMP IM PRN (04:35)
[2020-04-24 08:00] VITALS: BP_SYST 110
[2020-04-24] MEDS: CHOLECALCIFEROL (VITAMIN D3) 2,000 UNIT TABLET PO SCH ×2 (09:00→09:49)
[2020-04-24] MEDS: BUDESONIDE 0.5 MG/2 ML AMPUL.NEB INH SCH ×2 (09:00→21:00)
[2020-04-24] MEDS: DOCUSATE SODIUM 100 MG CAPSULE PO SCH ×2 (09:00→09:47)
[2020-04-24] MEDS: DIPHENHYDRAMINE HCL 50 MG CAPSULE PO SCH ×3 (09:47→21:17)
[2020-04-24] MEDS: BISACODYL 5 MG TABLET.DR (DULCOLAX) PO SCH (09:48)
[2020-04-24] MEDS: risperiDONE 1 MG TABLET (RisperDAL) PO SCH ×3 (09:48→21:18)
[2020-04-24] MEDS: PANTOPRAZOLE SODIUM 40 MG TAB PO SCH (09:48)
[2020-04-24] MEDS: LEVOTHYROXINE SODIUM 0.088 MG TABLET PO SCH (09:49)
[2020-04-24] MEDS: ASCORBIC ACID 500 MG TABLET PO SCH (09:49)
[2020-04-24] MEDS: THORAZINE (chlorproMAZINE) 25 MG TAB PO SCH ×3 (09:49→21:18)
[2020-04-24] MEDS: VALPROIC ACID ORAL SYRUP 250 MG/5 ML UDC PO SCH ×3 (09:55→21:18)
[2020-04-24] MEDS: FUROSEMIDE 20 MG TABLET PO SCH (10:02)
[2020-04-24 12:22] VITALS: BP_SYST 132
[2020-04-24 16:00] VITALS: BP_SYST 118
[2020-04-24] MEDS: RIVAROXABAN 10 MG TABLET PO SCH (18:07)
[2020-04-25] MEDS: ALBUTEROL SULFATE 0.083% 2.5 MG/3 ML VIAL.NEB INH SCH ×3 (03:00→23:00)
[2020-04-25] MEDS: IPRATROPIUM/ALBUTEROL SULFATE 3 ML AMPUL.NEB (DUONEB) INH SCH ×6 (03:00→23:00)
[2020-04-25 08:00] VITALS: BP_SYST 128
[2020-04-25] MEDS: BUDESONIDE 0.5 MG/2 ML AMPUL.NEB INH SCH ×2 (09:00→20:31)
[2020-04-25] MEDS: LEVOTHYROXINE SODIUM 0.088 MG TABLET PO SCH (09:00)
[2020-04-25] MEDS: VALPROIC ACID ORAL SYRUP 250 MG/5 ML UDC PO SCH ×3 (09:35→20:37)
[2020-04-25] MEDS: PANTOPRAZOLE SODIUM 40 MG TAB PO SCH (09:35)
[2020-04-25] MEDS: risperiDONE 1 MG TABLET (RisperDAL) PO SCH ×3 (09:36→20:36)
[2020-04-25] MEDS: DOCUSATE SODIUM 100 MG CAPSULE PO SCH (09:36)
[2020-04-25] MEDS: ASCORBIC ACID 500 MG TABLET PO SCH (09:36)
[2020-04-25] MEDS: BISACODYL 5 MG TABLET.DR (DULCOLAX) PO SCH (09:36)
[2020-04-25] MEDS: DIPHENHYDRAMINE HCL 50 MG CAPSULE PO SCH ×3 (09:37→20:36)
[2020-04-25] MEDS: THORAZINE (chlorproMAZINE) 25 MG TAB PO SCH ×3 (09:40→20:36)
[2020-04-25] MEDS: CHOLECALCIFEROL (VITAMIN D3) 2,000 UNIT TABLET PO SCH (09:41)
[2020-04-25] MEDS: FUROSEMIDE 20 MG TABLET PO SCH (09:50)
[2020-04-25 12:37] VITALS: BP_SYST 144
[2020-04-25 16:44] VITALS: BP_SYST 106
[2020-04-25] MEDS ORDERED: LORazepam 2 MG/ML VIAL IM PRN (17:30)
[2020-04-25] MEDS: RIVAROXABAN 10 MG TABLET PO SCH (17:46)
[2020-04-26 00:49] VITALS: BP_SYST 128
[2020-04-26] MEDS: IPRATROPIUM/ALBUTEROL SULFATE 3 ML AMPUL.NEB (DUONEB) INH SCH ×6 (03:00→23:00)
[2020-04-26] MEDS: ALBUTEROL SULFATE 0.083% 2.5 MG/3 ML VIAL.NEB INH SCH (03:00)
[2020-04-26 08:00] VITALS: BP_SYST 131
[2020-04-26] MEDS: DOCUSATE SODIUM 100 MG CAPSULE PO SCH (08:53)
[2020-04-26] MEDS: VALPROIC ACID ORAL SYRUP 250 MG/5 ML UDC PO SCH ×3 (08:53→20:25)
[2020-04-26] MEDS: DIPHENHYDRAMINE HCL 50 MG CAPSULE PO SCH ×3 (08:53→20:25)
[2020-04-26] MEDS: risperiDONE 1 MG TABLET (RisperDAL) PO SCH ×3 (08:54→20:25)
[2020-04-26] MEDS: FUROSEMIDE 20 MG TABLET PO SCH (08:54)
[2020-04-26] MEDS: ASCORBIC ACID 500 MG TABLET PO SCH (08:54)
[2020-04-26] MEDS: THORAZINE (chlorproMAZINE) 25 MG TAB PO SCH ×3 (08:55→20:25)
[2020-04-26] MEDS: PANTOPRAZOLE SODIUM 40 MG TAB PO SCH (08:55)
[2020-04-26] MEDS: BISACODYL 5 MG TABLET.DR (DULCOLAX) PO SCH (08:55)
[2020-04-26] MEDS: CHOLECALCIFEROL (VITAMIN D3) 2,000 UNIT TABLET PO SCH (08:56)
[2020-04-26] MEDS: LEVOTHYROXINE SODIUM 0.088 MG TABLET PO SCH (08:56)
[2020-04-26] MEDS: BUDESONIDE 0.5 MG/2 ML AMPUL.NEB INH SCH ×2 (09:00→20:06)
[2020-04-26 12:53] VITALS: BP_SYST 127
[2020-04-26 14:47] VITALS: BP_SYST 127
[2020-04-26 16:53] VITALS: BP_SYST 121
[2020-04-26] MEDS: RIVAROXABAN 10 MG TABLET PO SCH (18:23)
[2020-04-26 20:00] VITALS: BP_SYST 114
[2020-04-27] MEDS: IPRATROPIUM/ALBUTEROL SULFATE 3 ML AMPUL.NEB (DUONEB) INH SCH ×3 (03:00→12:04)
[2020-04-27] MEDS: ALBUTEROL SULFATE 0.083% 2.5 MG/3 ML VIAL.NEB INH SCH ×2 (07:00→11:00)
[2020-04-27 08:00] VITALS: BP_SYST 119
[2020-04-27] MEDS: BUDESONIDE 0.5 MG/2 ML AMPUL.NEB INH SCH (09:00)
[2020-04-27] MEDS: ASCORBIC ACID 500 MG TABLET PO SCH (09:07)
[2020-04-27] MEDS: LEVOTHYROXINE SODIUM 0.088 MG TABLET PO SCH (09:07)
[2020-04-27] MEDS: BISACODYL 5 MG TABLET.DR (DULCOLAX) PO SCH (09:07)
[2020-04-27] MEDS: DIPHENHYDRAMINE HCL 50 MG CAPSULE PO SCH (09:07)
[2020-04-27] MEDS: PANTOPRAZOLE SODIUM 40 MG TAB PO SCH (09:08)
[2020-04-27] MEDS: CHOLECALCIFEROL (VITAMIN D3) 2,000 UNIT TABLET PO SCH (09:08)
[2020-04-27] MEDS: risperiDONE 1 MG TABLET (RisperDAL) PO SCH (09:08)
[2020-04-27] MEDS: DOCUSATE SODIUM 100 MG CAPSULE PO SCH (09:08)
[2020-04-27] MEDS: VALPROIC ACID ORAL SYRUP 250 MG/5 ML UDC PO SCH (09:08)
[2020-04-27] MEDS: FUROSEMIDE 20 MG TABLET PO SCH (09:22)
[2020-04-27] MEDS: THORAZINE (chlorproMAZINE) 25 MG TAB PO SCH (09:25)
[2020-04-27 12:00] VITALS: BP_SYST 129
[2020-04-27 12:22] VITALS: BP_SYST 122
[2020-04-27] MEDS: chlorproMAZINE HCL 50 MG/ 2 ML AMP IM PRN (12:31)
== END 2020-04-27 13:00 | DRG 177 ==
LOC: SED 18:25 → STU 22:25 → SMU 04-19 08:47
PROVIDERS: ADMIT Family Medicine; ATTEND Family Medicine
DX: J69.0 Pneumonitis due to inhalation of food and vomit (principal); J96.21 Acute and chronic respiratory failure with hypoxia; J44.1 Chronic obstructive pulmonary disease with (acute) exacerbation; Z68.41 Body mass index [BMI] 40.0-44.9, adult; I42.9 Cardiomyopathy, unspecified; E87.1 Hypo-osmolality and hyponatremia; J44.0 Chronic obstructive pulmonary disease with (acute) lower respiratory infection; I11.0 Hypertensive heart disease with heart failure; E03.9 Hypothyroidism, unspecified; F41.9 Anxiety disorder, unspecified; D69.6 Thrombocytopenia, unspecified; F29 Unspecified psychosis not due to a substance or known physiological condition; Z20.828 Contact with and (suspected) exposure to other viral communicable diseases; F32.9 Major depressive disorder, single episode, unspecified; E66.01 Morbid (severe) obesity due to excess calories; F03.90 Unspecified dementia, unspecified severity, without behavioral disturbance, psychotic disturbance, mood disturbance, and anxiety; F79 Unspecified intellectual disabilities; T38.0X5A Adverse effect of glucocorticoids and synthetic analogues, initial encounter; Z79.1 Long term (current) use of non-steroidal anti-inflammatories (NSAID); Z79.899 Other long term (current) drug therapy; Z79.890 Hormone replacement therapy; Z88.0 Allergy status to penicillin; Z88.8 Allergy status to other drugs, medicaments and biological substances; Z78.1 Physical restraint status; Z78.9 Other specified health status; Z86.718 Personal history of other venous thrombosis and embolism; Z87.891 Personal history of nicotine dependence; Z95.0 Presence of cardiac pacemaker; Y92.89 Other specified places as the place of occurrence of the external cause
CPT/HCPCS: 36415; 71045; 80048; 80053; 81003; 83605; 83880; 84443-TC; 84484; 85007; 85025; 85027; 85379; 87081; 93005; 93306; 94640; 94760; 99285; G0378; J1030; J1450; J1630; J1956; J2060; J2930; J3230; J3490; J7050; J7512; J7613; J7626; Q0161; Q0163; U0003-CS

== ENCOUNTER 2020-10-13 15:26 | Emergency (ER) | payer OTHER, MEDICAID, SELFPAY ==
[~2020-10-13] VITALS: Ht 165.1 cm; Wt 90.7 kg
[2020-10-13 15:26] VITALS: BP_SYST 157
[~2020-10-13 15:26] MED LIST: ACET325C5 PO; ASCO500C18 PO; BENZ0.5T43 PO; BISA5TAB10 PO; CHOL500052 PO; DOCU-144 PO; DOXE10CA2 PO; FURO20TA4 PO; LEVO88TA5 PO; LORA-259 PO; MAGN24003 PO; PRO40 PO; RISP1TAB27 PO; RIVA20TA PO; TRAZ-251 PO; VALP250S3 PO
[2020-10-13] MEDS ORDERED: HALOPERIDOL LACTATE 5 MG/ML VIAL IM ONE (15:45)
[2020-10-13] MEDS ORDERED: LORazepam 2 MG/ML VIAL IM ONE (15:45)
[2020-10-13] MEDS ORDERED: DIPHENHYDRAMINE INJ 50 MG/ML VIAL IM ONE (15:45)
[2020-10-13] MEDS ORDERED: LORazepam 2 MG/ML VIAL ONE (15:50)
[2020-10-13] MEDS ORDERED: DIPHENHYDRAMINE INJ 50 MG/ML VIAL ONE (15:51)
[2020-10-13] MEDS ORDERED: HALOPERIDOL LACTATE 5 MG/ML VIAL ONE (15:51)
[2020-10-13 16:39] LABS: BILIRUBIN,URINE NEGATIVE (NEGATIVE); BLOOD, URINE NEGATIVE (NEGATIVE); COLOR,URINE YELLOW (YELLOW); GLUCOSE,URINE NEGATIVE (NEGATIVE); KETONES,URINE TRACE (NEGATIVE); LEUKOCYTE ESTERASE ,URINE NEGATIVE (NEGATIVE); NITRITE, URINE POSITIVE (NEGATIVE); PH,URINE 6.5 (5.0-8.0); PROTEIN URINE NEGATIVE (NEGATIVE); UROBILINOGEN,URINE 0.2 (0.2-1.0)
[2020-10-13 16:45] LABS: CLARITY/URINE HAZY (CLEAR)
[2020-10-13 16:52] LABS: BARBITURATE, URINE NEGATIVE (NEG <=200); BENZODIAZEPINE, URINE POSITIVE (NEG <=150); CANNABINOID, URINE NEGATIVE (NEG <=50); COCAINE, URINE NEGATIVE (NEG <=150); METHAMPHETAMINES SCREEN,URINE NEGATIVE (NEG <=500); OPIATE, URINE NEGATIVE (NEG <=100); PHENCYCLIDINE SCREEN,URINE NEGATIVE (NEG <=25); URINE AMPHETAMINE NEGATIVE (NEG <=500); URINE METHADONE NEGATIVE (NEG <=200); URINE OXYCODONE SCREEN NEGATIVE (NEG <=100); URINE PROPOXYPHENE SCREEN NEGATIVE (NEG <=300)
[2020-10-13 16:53] LABS: UR TRICYCLIC ANTIDEPRESSANTS NEGATIVE (NEG <=300)
[2020-10-13 16:55] LABS: BACTERIA,URINE MANY /HPF (None Seen); RBC,URINE 0-3 /HPF (0-3)
[2020-10-13 16:56] LABS: COARSE GRANULAR CASTS,URINE 0-10 /LPF (None Seen); MUCUS,URINE 3+ /LPF (None Seen)
[2020-10-13 16:59] LABS: BASOPHILS # (AUTO) 0.1 K/uL (0.0-0.2); BASOPHILS % (AUTO) 0.5 % (0.0-2.0); EOSINOPHILS # (AUTO) 0.2 K/uL (0.0-0.4); EOSINOPHILS % (AUTO) 1.2 % (0.0-4.0); HEMATOCRIT 42.5 % (36-48); HEMOGLOBIN 13.8 g/dL (12.0-16.0); LYMPHOCYTES # (AUTO) 1.9 K/uL (1.0-5.5); LYMPHOCYTES % (AUTO) 14.4 % (20.5-51.5); MEAN CORPUSCULAR HEMOGLOBIN 28 pg (27-31); MEAN CORPUSCULAR HGB CONC 33 % (32-36); MEAN CORPUSCULAR VOLUME 86 fL (79.0-98.0); MONOCYTES # (AUTO) 1.1 K/uL (0.0-1.0); MONOCYTES % (AUTO) 8.4 % (1.7-9.3); NEUTROPHILS % (AUTO) 75.5 % (40.0-70.0); PLATELET COUNT (AUTO) 320 K/uL (130-430); RED BLOOD CELL COUNT(AUTO) 4.97 MIL/uL (4.2-6.2); RED CELL DISTRIBUTION WIDTH 18.3 % (9.0-15.0); WHITE BLOOD COUNT (AUTO) 13.3 K/uL (4.8-10.8)
[2020-10-13 17:12] LABS: ANION GAP 11 (5-15); CALCIUM 9.8 mg/dL (8.4-11.0); CHLORIDE 99 mmol/L (98-107); CREATININE 0.87 mg/dL (0.55-1.30); GLUCOSE 110 mg/dL (70-99); POTASSIUM 3.6 mmol/L (3.5-5.1); SODIUM SERUM 140 mmol/L (136-145); UREA NITROGEN, BLOOD 8 mg/dL (8-21)
[2020-10-13 17:16] LABS: GFR AFRICAN AMERICAN 85 mL/min (>90)
[2020-10-13 17:18] LABS: ALANINE AMINOTRANSFERASE 23 U/L (12-78); ALBUMIN 3.1 g/dL (3.4-4.8); ASPARTATE AMINOTRANSFERASE 24 U/L (10-37); TOTAL BILIRUBIN 0.5 mg/dL (0.0-1.0)
[2020-10-13 17:19] LABS: HDL CHOLESTEROL 58 mg/dL (>55); LDL CHOLESTEROL 203 mg/dL (<100); TRIGLYCERIDES 74 mg/dL (30-150)
[2020-10-13 17:20] LABS: ACETAMINOPHEN < 1 ug/mL (1-30); ALCOHOL, BLOOD < 3 mg/dL (<10)
[2020-10-13] MEDS ORDERED: cefTRIAXone 1 GM VIAL IM ONE (17:30)
[2020-10-13] MEDS ORDERED: CIPR-211 PO (17:34)
[2020-10-13] MEDS ORDERED: LIDOCAINE 1%, 20 ML MDV 20 ML ONE (17:38)
[2020-10-13 17:39] LABS: CHOLESTEROL 281 mg/dL (<200)
[2020-10-13 20:02] VITALS: BP_SYST 134
== END 2020-10-13 20:00 | disposition home or self-care (01) ==
LOC: SED 15:26
DX: R45.6 Violent behavior (principal); N39.0 Urinary tract infection, site not specified; J44.9 Chronic obstructive pulmonary disease, unspecified; Z79.899 Other long term (current) drug therapy; Z88.8 Allergy status to other drugs, medicaments and biological substances; Z20.822 Contact with and (suspected) exposure to COVID-19
CPT/HCPCS: 36415; 80053; 80061; 80307; 81000; 83036; 85025; 87081; 87086; 87426; 96372; 99284; G0480; G0481; G0482; J0696; J1200; J1630; J2001; J2060

== ENCOUNTER 2020-10-21 13:09 | Inpatient (IN) | payer OTHER, MEDICAID, SELFPAY ==
[~2020-10-21] VITALS: Ht 165.1 cm; Wt 86.2 kg
[~2020-10-21 13:09] MED LIST changes: +CIPR500T5 PO; -RISP1TAB27 PO; +RISP1TAB44 PO
[2020-10-21 13:16] VITALS: BP_SYST 114
[2020-10-21] MEDS ORDERED: DIPHENHYDRAMINE INJ 50 MG/ML VIAL IM ONE (13:45)
[2020-10-21] MEDS ORDERED: HALOPERIDOL LACTATE 5 MG/ML VIAL IM ONE ×2 (13:45→18:45)
[2020-10-21] MEDS ORDERED: LORazepam 2 MG/ML VIAL IM ONE (13:45)
[2020-10-21 15:54] LABS: BASOPHILS # (AUTO) 0.2 K/uL (0.0-0.2); BASOPHILS % (AUTO) 2.5 % (0.0-2.0); EOSINOPHILS # (AUTO) 0.3 K/uL (0.0-0.4); EOSINOPHILS % (AUTO) 3.1 % (0.0-4.0); HEMATOCRIT 39.7 % (36-48); HEMOGLOBIN 13.2 g/dL (12.0-16.0); LYMPHOCYTES # (AUTO) 1.7 K/uL (1.0-5.5); LYMPHOCYTES % (AUTO) 20.3 % (20.5-51.5); MEAN CORPUSCULAR HEMOGLOBIN 28 pg (27-31); MEAN CORPUSCULAR HGB CONC 33 % (32-36); MEAN CORPUSCULAR VOLUME 86 fL (79.0-98.0); MONOCYTES # (AUTO) 0.9 K/uL (0.0-1.0); MONOCYTES % (AUTO) 10.3 % (1.7-9.3); NEUTROPHILS # (AUTO) 5.3 K/uL (1.8-7.7); NEUTROPHILS % (AUTO) 63.8 % (40.0-70.0); PLATELET COUNT (AUTO) 234 K/uL (130-430); RED BLOOD CELL COUNT(AUTO) 4.64 MIL/uL (4.2-6.2); RED CELL DISTRIBUTION WIDTH 17.6 % (9.0-15.0); WHITE BLOOD COUNT (AUTO) 8.3 K/uL (4.8-10.8)
[2020-10-21 16:18] LABS: ALANINE AMINOTRANSFERASE 21 U/L (12-78); ALBUMIN 2.7 g/dL (3.4-4.8); ANION GAP 9 (5-15); ASPARTATE AMINOTRANSFERASE 22 U/L (10-37); CALCIUM 9.7 mg/dL (8.4-11.0); CHLORIDE 96 mmol/L (98-107); CREATININE 0.88 mg/dL (0.55-1.30); GLUCOSE 114 mg/dL (70-99); SODIUM SERUM 135 mmol/L (136-145); TOTAL BILIRUBIN 0.5 mg/dL (0.0-1.0); UREA NITROGEN, BLOOD 9 mg/dL (8-21)
[2020-10-21 16:23] LABS: ALCOHOL, BLOOD < 3 mg/dL (<10); GFR AFRICAN AMERICAN 84 mL/min (>90)
[2020-10-21 16:24] LABS: ACETAMINOPHEN < 1 ug/mL (1-30)
[2020-10-21] MEDS ORDERED: NA P133E41 RC (16:28)
[2020-10-21] MEDS ORDERED: MOM PO (16:28)
[2020-10-21] MEDS ORDERED: CLON1TAB12 PO (16:28)
[2020-10-21] MEDS ORDERED: ACET-73 PO (16:30)
[2020-10-21] MEDS ORDERED: DULR10 RC (16:37)
[2020-10-21] MEDS ORDERED: SER100 PO (16:37)
[2020-10-21] MEDS ORDERED: SENN-153 PO (16:37)
[2020-10-21 16:56] LABS: CHOLESTEROL 242 mg/dL (<200); HDL CHOLESTEROL 62 mg/dL (>55); LDL CHOLESTEROL 163 mg/dL (<100); TRIGLYCERIDES 88 mg/dL (30-150)
[2020-10-21] MEDS ORDERED: ACETAMINOPHEN 500 MG TABLET PO PRN ×2 (18:45)
[2020-10-21] MEDS ORDERED: BISACODYL 10 MG/SUPPOSITORY RC PRN (18:45)
[2020-10-21] MEDS ORDERED: SODIUM PHOSPHATE,MONO-DIBASIC 133 ML ENEMA RC PRN (18:45)
[2020-10-21] MEDS ORDERED: MILK OF MAGNESIA 30 ML UDC PO PRN (18:45)
[2020-10-21 20:00] VITALS: BP_SYST 117
[2020-10-21] MEDS ORDERED: HALOPERIDOL LACTATE 5 MG/ML VIAL ONE (22:29)
[2020-10-22] MEDS: DOCUSATE SODIUM 100 MG CAPSULE PO SCH ×3 (01:31→22:33)
[2020-10-22] MEDS: DOXEPIN HCL (SINEquan) 10 MG CAPSULE PO SCH ×2 (01:31→22:32)
[2020-10-22] MEDS: traZODone HCL 50 MG TABLET (DESYREL) PO SCH ×2 (01:31→22:32)
[2020-10-22] MEDS: QUEtiapine FUMARATE 100 MG TABLET PO SCH ×4 (01:31→22:33)
[2020-10-22] MEDS: clonazePAM 0.5 MG TABLET PO SCH ×4 (01:35→22:32)
[2020-10-22] MEDS: LORazepam 2 MG/ML VIAL IVP PRN ×2 (04:52→22:34)
[2020-10-22] MEDS: LEVOTHYROXINE SODIUM 0.088 MG TABLET PO SCH (06:41)
[2020-10-22 06:42] LABS: BASOPHILS # (AUTO) 0.1 K/uL (0.0-0.2); BASOPHILS % (AUTO) 0.8 % (0.0-2.0); EOSINOPHILS # (AUTO) 0.3 K/uL (0.0-0.4); EOSINOPHILS % (AUTO) 3.6 % (0.0-4.0); HEMATOCRIT 40.3 % (36-48); HEMOGLOBIN 13.1 g/dL (12.0-16.0); LYMPHOCYTES % (AUTO) 28.2 % (20.5-51.5); MEAN CORPUSCULAR HEMOGLOBIN 28 pg (27-31); MEAN CORPUSCULAR HGB CONC 32 % (32-36); MEAN CORPUSCULAR VOLUME 85 fL (79.0-98.0); MONOCYTES # (AUTO) 0.9 K/uL (0.0-1.0); MONOCYTES % (AUTO) 12.8 % (1.7-9.3); NEUTROPHILS # (AUTO) 3.9 K/uL (1.8-7.7); NEUTROPHILS % (AUTO) 54.6 % (40.0-70.0); PLATELET COUNT (AUTO) 229 K/uL (130-430); RED BLOOD CELL COUNT(AUTO) 4.72 MIL/uL (4.2-6.2); RED CELL DISTRIBUTION WIDTH 17.9 % (9.0-15.0); WHITE BLOOD COUNT (AUTO) 7.1 K/uL (4.8-10.8)
[2020-10-22] MEDS ORDERED: HALOPERIDOL LACTATE 5 MG/ML VIAL IVP ONE (07:15)
[2020-10-22 07:40] LABS: ALBUMIN 2.7 g/dL (3.4-4.8); CALCIUM 9.7 mg/dL (8.4-11.0); CREATININE 0.87 mg/dL (0.55-1.30); THYROID STIMULATING HORMONE 1.57 uIu/mL (0.36-3.74); TOTAL BILIRUBIN 0.5 mg/dL (0.0-1.0)
[2020-10-22 08:00] VITALS: BP_SYST 134
[2020-10-22] MEDS ORDERED: POTASSIUM CHLORIDE 20 MEQ TAB.PRT.SR PO ONE (08:30)
[2020-10-22] MEDS: PANTOPRAZOLE SODIUM 40 MG TAB PO SCH (10:34)
[2020-10-22] MEDS: FUROSEMIDE 20 MG TABLET PO SCH (10:42)
[2020-10-22] MEDS: BISACODYL 5 MG TABLET.DR (DULCOLAX) PO SCH (10:46)
[2020-10-22 12:18] VITALS: BP_SYST 130
[2020-10-22 15:59] VITALS: BP_SYST 134
[2020-10-22] MEDS: HALOPERIDOL LACTATE 5 MG/ML VIAL IM PRN (16:57)
[2020-10-22] MEDS: RIVAROXABAN 10 MG TABLET PO SCH (18:35)
[2020-10-22 20:00] VITALS: BP_SYST 131
[2020-10-22] MEDS: SENNOSIDES 8.6 MG TABLET PO SCH ×2 (22:32→22:34)
[2020-10-22] MEDS: POTASSIUM CHLORIDE 20 MEQ TAB.PRT.SR PO SCH (22:33)
[2020-10-23 00:14] VITALS: BP_SYST 133
[2020-10-23] MEDS: HALOPERIDOL LACTATE 5 MG/ML VIAL IM PRN ×4 (00:33→22:21)
[2020-10-23] MEDS: LEVOTHYROXINE SODIUM 0.088 MG TABLET PO SCH (07:08)
[2020-10-23] MEDS: BISACODYL 5 MG TABLET.DR (DULCOLAX) PO SCH (08:15)
[2020-10-23] MEDS: clonazePAM 0.5 MG TABLET PO SCH ×3 (08:15→22:19)
[2020-10-23] MEDS: DOCUSATE SODIUM 100 MG CAPSULE PO SCH ×2 (08:15→22:20)
[2020-10-23] MEDS: QUEtiapine FUMARATE 100 MG TABLET PO SCH ×3 (08:15→22:21)
[2020-10-23] MEDS: PANTOPRAZOLE SODIUM 40 MG TAB PO SCH (08:16)
[2020-10-23] MEDS: POTASSIUM CHLORIDE 20 MEQ TAB.PRT.SR PO SCH ×2 (08:16→22:20)
[2020-10-23] MEDS: FUROSEMIDE 20 MG TABLET PO SCH (08:17)
[2020-10-23 11:25] VITALS: BP_SYST 114
[2020-10-23 15:23] VITALS: BP_SYST 139
[2020-10-23] MEDS: RIVAROXABAN 10 MG TABLET PO SCH (18:11)
[2020-10-23] MEDS: DOXEPIN HCL (SINEquan) 10 MG CAPSULE PO SCH (22:19)
[2020-10-23] MEDS: SENNOSIDES 8.6 MG TABLET PO SCH (22:20)
[2020-10-23] MEDS: traZODone HCL 50 MG TABLET (DESYREL) PO SCH (22:20)
[2020-10-23 22:28] VITALS: BP_SYST 141
[2020-10-24] MEDS: HALOPERIDOL LACTATE 5 MG/ML VIAL IM PRN (06:02)
[2020-10-24] MEDS: LEVOTHYROXINE SODIUM 0.088 MG TABLET PO SCH (06:02)
[2020-10-24 07:26] LABS: CALCIUM 9.5 mg/dL (8.4-11.0); CREATININE 1.04 mg/dL (0.55-1.30); POTASSIUM 4.6 mmol/L (3.5-5.1)
[2020-10-24 08:00] VITALS: BP_SYST 121
[2020-10-24] MEDS: QUEtiapine FUMARATE 100 MG TABLET PO SCH ×3 (09:31→21:57)
[2020-10-24] MEDS: BISACODYL 5 MG TABLET.DR (DULCOLAX) PO SCH (09:31)
[2020-10-24] MEDS: DOCUSATE SODIUM 100 MG CAPSULE PO SCH ×2 (09:31→22:04)
[2020-10-24] MEDS: clonazePAM 0.5 MG TABLET PO SCH ×3 (09:31→21:57)
[2020-10-24] MEDS: PANTOPRAZOLE SODIUM 40 MG TAB PO SCH (09:36)
[2020-10-24] MEDS: FUROSEMIDE 20 MG TABLET PO SCH (09:36)
[2020-10-24 11:25] VITALS: BP_SYST 110
[2020-10-24] MEDS ORDERED: HALOPERIDOL LACTATE 5 MG/ML VIAL IVP PRN (11:30)
[2020-10-24 15:39] VITALS: BP_SYST 109
[2020-10-24] MEDS: RIVAROXABAN 10 MG TABLET PO SCH (18:27)
[2020-10-24 20:00] VITALS: BP_SYST 115
[2020-10-24] MEDS: traZODone HCL 50 MG TABLET (DESYREL) PO SCH (21:57)
[2020-10-24] MEDS: SENNOSIDES 8.6 MG TABLET PO SCH (22:04)
[2020-10-24] MEDS: DOXEPIN HCL (SINEquan) 10 MG CAPSULE PO SCH (22:04)
[2020-10-25] MEDS: LEVOTHYROXINE SODIUM 0.088 MG TABLET PO SCH (05:55)
[2020-10-25] MEDS: PANTOPRAZOLE SODIUM 40 MG TAB PO SCH (09:00)
[2020-10-25] MEDS: FUROSEMIDE 20 MG TABLET PO SCH (09:00)
[2020-10-25] MEDS: BISACODYL 5 MG TABLET.DR (DULCOLAX) PO SCH (09:00)
[2020-10-25] MEDS: DOCUSATE SODIUM 100 MG CAPSULE PO SCH ×2 (09:00→21:49)
[2020-10-25] MEDS: QUEtiapine FUMARATE 100 MG TABLET PO SCH ×3 (10:11→21:49)
[2020-10-25] MEDS: clonazePAM 0.5 MG TABLET PO SCH ×3 (10:11→21:48)
[2020-10-25 11:32] VITALS: BP_SYST 114
[2020-10-25 15:26] VITALS: BP_SYST 118
[2020-10-25] MEDS: RIVAROXABAN 10 MG TABLET PO SCH (18:00)
[2020-10-25 20:00] VITALS: BP_SYST 111
[2020-10-25] MEDS: SENNOSIDES 8.6 MG TABLET PO SCH (21:48)
[2020-10-25] MEDS: DOXEPIN HCL (SINEquan) 10 MG CAPSULE PO SCH (21:49)
[2020-10-25] MEDS: traZODone HCL 50 MG TABLET (DESYREL) PO SCH (21:49)
[2020-10-26 01:27] VITALS: BP_SYST 131
[2020-10-26] MEDS: LEVOTHYROXINE SODIUM 0.088 MG TABLET PO SCH (06:31)
[2020-10-26 08:00] VITALS: BP_SYST 148
[2020-10-26] MEDS: QUEtiapine FUMARATE 100 MG TABLET PO SCH ×2 (09:15→14:01)
[2020-10-26] MEDS: PANTOPRAZOLE SODIUM 40 MG TAB PO SCH (09:16)
[2020-10-26] MEDS: FUROSEMIDE 20 MG TABLET PO SCH (09:16)
[2020-10-26] MEDS: clonazePAM 0.5 MG TABLET PO SCH ×2 (09:16→14:00)
[2020-10-26] MEDS: DOCUSATE SODIUM 100 MG CAPSULE PO SCH (09:16)
[2020-10-26] MEDS: BISACODYL 5 MG TABLET.DR (DULCOLAX) PO SCH (09:17)
[2020-10-26 11:33] VITALS: BP_SYST 109
[2020-10-26] MEDS ORDERED: MUPIROCIN 2% TOPICAL OINTMENT 22 GM TP ONE (13:30)
[2020-10-26 14:28] VITALS: BP_SYST 109
[2020-10-26] MEDS ORDERED: MUPIROCIN 2% TOPICAL OINTMENT 22 GM TP SCH (21:00)
== END 2020-10-26 15:10 | DRG 884 ==
LOC: SED 13:09 → SMU 17:17 → STU 10-22 07:29
PROVIDERS: ADMIT Internal Medicine Hospice and Palliative Medicine; ATTEND Internal Medicine Hospice and Palliative Medicine
DX: R45.1 Restlessness and agitation (principal); E43 Unspecified severe protein-calorie malnutrition; I10 Essential (primary) hypertension; Z20.822 Contact with and (suspected) exposure to COVID-19; F99 Mental disorder, not otherwise specified; F20.9 Schizophrenia, unspecified
CPT/HCPCS: 36415; 80048; 80053; 80061; 83036; 84443; 85025; 87081; 96372; G0378; G0480; G0481; G0482; J1200; J1630; J2060; U0003

== ENCOUNTER 2020-11-29 13:56 | Emergency (ER) | payer OTHER, MEDICAID ==
[~2020-11-29] VITALS: Ht 165.1 cm; Wt 97.1 kg
[~2020-11-29 13:56] MED LIST changes: +ACET-73 PO; -CHOL500052 PO; -CIPR500T5 PO; +CLON1TAB12 PO; +DULR10 RC; -LORA-259 PO; -MAGN24003 PO; +MOM PO; +NA P133E41 RC; -RISP1TAB44 PO; +SENN-153 PO; +SER100 PO; -VALP250S3 PO
[2020-11-29 14:33] VITALS: BP_SYST 106
[2020-11-29] MEDS ORDERED: LIDOCAINE 1% 10 MG/ML, 20 ML MDV INJ ONE (15:15)
[2020-11-29] MEDS ORDERED: LIDOCAINE 1%, 20 ML MDV 20 ML ONE (15:15)
[2020-11-29] MEDS ORDERED: SULF1TAB48 PO (15:20)
[2020-11-29 17:55] VITALS: BP_SYST 151
== END 2020-11-29 17:55 | disposition home or self-care (01) ==
LOC: SED 13:56
DX: L02.413 Cutaneous abscess of right upper limb (principal); J44.9 Chronic obstructive pulmonary disease, unspecified; Z88.0 Allergy status to penicillin; Z88.8 Allergy status to other drugs, medicaments and biological substances; Z79.899 Other long term (current) drug therapy
CPT/HCPCS: 10060; 99283; J2001